=== PATIENT | female | born 1940 | race Caucasian/White ===

== ENCOUNTER → 2016-11-20 | Outpatient (CLI) | payer OTHER, MEDICARE ==
[~2016-11-20] VITALS: Ht 165.1 cm; Wt 65.3 kg
[~2016-11-20] MED LIST: CELEBREX 200 M200 MG PO; MS CONTIN15 MG PO; MULTI FOR HER400 MCG PO; OXYCODONE HCL5 M1 PO; ROXICODONE5 M1 PO; SUDAFED30 MG PO; ZANAFLEX2 M1 PO
--- NOTE | ~2016-11-20 | HPC ---
[facility] [place] [address] PAIN MANAGEMENT CONSULTATION Name: CHANDLER BEASLEY Room #: REG BRITTNEY [facility].#: [id number] Admission: 11/20/16 Attend Phys: Alfredo Negrete MD Discharge: Date of : 36 Report #: [id number] THIS REPORT FOR: //name// CC: Leni Negrete DATE OF SERVICE: 11/20/2016 Followup visit for chronic intractable arm pain with complex regional pain syndrome. The patient returns to pain clinic today for her medication which we provide under terms of our opioid agreement. She signed one of our first agreements on 05/18/1997. She takes currently MS Contin 15 mg b.i.d. and oxycodone 5 mg q. 12h., for breakthrough pain. Her morphine milligram equivalency is roughly 50-60 mg. She is stable with no significant side effects, remains active. 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 Today, she reports that her overall daily pain is about a 5-6. Most of it is in her left arm, but she also has right shoulder pain and pain into her neck. Characterizes the pain as chronic and burning. She is grateful for the relief that she gets. PHYSICAL EXAMINATION: GENERAL: Pleasant, alert and oriented, without signs of overmedication. VITAL SIGNS: Blood pressure 150/75, heart rate 88, respirations 16. BMI is 24. Left arm is tender to touch, but there are no signs of sympathetic hyperactivity. IMPRESSION: Chronic intractable pain with longstanding use of opioid medication. Her pain is originally complex regional pain syndrome, which is quiet at this time, although she continues to have diffuse arm pain and neck pain. PLAN: I will renew her medications under terms of our agreement. She will receive MS Contin 15 mg b.i.d., oxycodone twice a day for breakthrough pain, Celebrex 200 mg once daily and tizanidine 2 mg at bedtime, which has been helpful for sleep and for spasticity. [facility] [address] [place] [address] PAIN MANAGEMENT CONSULTATION Name: CHANDLER BEASLEY [facility] [id number] Admission: 11/20/16 Attend Phys: Alfredo Negrete MD Discharge: Date of : 38 Report #: [id number] Followup visit planned in 3 months. By: [id number] Alfredo Negrete MD /nt
[2016-11-20 11:00] VITALS: BP 150/75
== END ==
LOC: PAIN 07:24
DX: M54.2 Cervicalgia (principal); M79.603 Pain in arm, unspecified

== ENCOUNTER → 2017-05-27 | Outpatient (CLI) | payer OTHER, MEDICARE ==
[~2017-05-27] VITALS: Ht 165.1 cm; Wt 67.7 kg
[~2017-05-27] MED LIST changes: +ROXICODONE5 MG PO
--- NOTE | ~2017-05-27 | HPC ---
[facility] [address] [address] PAIN MANAGEMENT CONSULTATION Name: CHANDLER BEASLEY Room #: REG BRITTNEY [facility].#: [id number] Admission: 05/27/17 Attend Phys: Alfredo Negrete MD Discharge: Date of : 38 Report #: [id number] THIS REPORT FOR: //name// CC: Leni Negrete DATE OF SERVICE: 05/27/2017 Followup visit for chronic left arm pain, now with right shoulder pain and arthritis. The patient returns to pain clinic today for renewal of her pain medication. She has been receiving opioid analgesics since 1994. Her dose remains modest. Her morphine milligram equivalency dose is 45. She has been able to manage her chronic pain without difficulty. She continues to do well, her functioning is high. Her pain score is a 4-5/10. Pain is worse when she uses her arms lifting grandchildren or lifting things above her head. She has difficulty with tilting her head back, which reproduces pain in her neck, arm and shoulder. She has been complaining more recently of pain in the right shoulder, which has been diagnosed as arthritis. PQRS review is completed. All medications were reviewed and reconciled with no changes. ALLERGIES: TO NONSTEROIDAL ANTI-INFLAMMATORY DRUGS. She is on an opioid agreement and has been so for over 25 years. She has had no misuse or abuse issues. She safeguards her medication carefully. Opioid risk tool has been completed and she is a very low risk. She has completed a functional assessment tool as well and remains highly functional. She is not treated for hypertension. She is not a fall risk. BMI is 24.8. PHYSICAL EXAMINATION: She is pleasant, alert and oriented with vital signs of blood pressure 141/88, heart rate 103, respirations 16. She has good use of the left arm and contributes much of her improved movement to the use of her medication. IMPRESSION: 1. Chronic intractable arm pain with complex regional pain syndrome. 2. Long-term use of opioid analgesics but no misuse or abuse. [facility] [address] [place] [address] PAIN MANAGEMENT CONSULTATION Name: CHANDLER BEASLEY [facility] #: [facility] [id number] Admission: 05/27/17 Attend Phys: Alfredo Negrete MD Discharge: Date of : 38 Report #: [id number] PLAN: I renewed her medications for her with renewal days for 4 and 8 weeks and plan to see her back in the pain clinic in 3-6 months. <ELECTRONICALLY SIGNED> By: Alfredo Negrete MD 06/03/17 1640 [id number] Alfredo Negrete MD /nt
[2017-05-27 08:58] VITALS: BP 140/86
[2017-05-27 13:05] VITALS: BP 141/88
== END ==
LOC: PAIN 06:53
DX: G89.29 Other chronic pain (principal); M79.602 Pain in left arm; F11.90 Opioid use, unspecified, uncomplicated; Z88.6 Allergy status to analgesic agent

== ENCOUNTER → 2017-11-19 | Outpatient (CLI) | payer OTHER, MEDICARE ==
[~2017-11-19] VITALS: Ht 165.1 cm; Wt 66.7 kg
--- NOTE | ~2017-11-19 | HPC ---
[facility] [place] [address] PAIN MANAGEMENT CONSULTATION Name: CHANDLER BEASLEY Room #: REG BRITTNEY Naima#: [id number] Admission: 11/19/17 Attend Phys: Alfredo Negrete MD Discharge: Date of : 38 Report #: [id number] THIS REPORT FOR: //name// CC: Leni Negrete DATE OF SERVICE: 11/19/2017 REASON FOR VISIT: Followup visit for complex regional pain syndrome. HISTORY OF PRESENT ILLNESS: This is a 3-month followup for the patient who has been receiving opioid medications from our clinic for over 20 years. She has never shown any misuse or abuse of medications. She has received excellent relief of pain from her medication. She has denied any side effects. There has been no toxicity. We have checked her refill profile on the [facility] PDMP and there are no unusual entries, all medications have been received from our clinic. Other than the mild constipation with opioids, she has had nothing really negative to say about pain medication and is grateful that she has not required any additional treatments. We have talked at length at previous visits and once again today about trying to taper slowly if she came to the lowest effective dose. She is willing to do so. She has tried this in the past and often found that even with slow taper, her pain increases fairly dramatically and by the time, she has reduced by 30%-40%. She is willing to give it ago and will limit her breakthrough medications in the future. She is currently on MS Contin 15 mg b.i.d. and oxycodone 5 mg twice a day for breakthrough pain. PHYSICAL EXAMINATION: GENERAL: She is delightful, pleasant, alert and oriented, without signs of depression, anxiety or overmedication. VITAL SIGNS: Her blood pressure is 125/58 and heart rate 88. BMI is 26. MUSCULOSKELETAL: She moves from a sitting to standing position and ambulates without difficulty. Cervical range of motion is within normal limits. 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 IMPRESSION: 1. Chronic intractable arm pain, complex regional pain syndrome. 2. Long-term use of opioid analgesics and prescribing of high risk medications under terms of written opioid agreement within the CDC guidelines. Her MME is 45. [address] [address] PAIN MANAGEMENT CONSULTATION Name: CHANDLER BEASLEY Room #: REG BRITTNEY Naima#: [id number] Admission: 11/19/17 Attend Phys: Alfredo Negrete MD Discharge: Date of : 38 Report #: [id number] RECOMMENDATIONS: We will make some efforts to try and taper this between now and 3 months. She understands her critical role of safeguarding medication. We discussed at some length today. By: [id number] Alfredo Negrete MD /nt
[2017-11-19 10:39] VITALS: BP 160/86
== END ==
LOC: PAIN 07:16
DX: G90.513 Complex regional pain syndrome I of upper limb, bilateral (principal); G89.4 Chronic pain syndrome; M54.2 Cervicalgia; Z79.899 Other long term (current) drug therapy

== ENCOUNTER → 2018-03-01 | Outpatient (CLI) | payer OTHER, MEDICARE ==
[~2018-03-01] VITALS: Ht 165.1 cm; Wt 68.5 kg
[~2018-03-01] MED LIST changes: +CELEBREX 200 M200 M1 PO
--- NOTE | ~2018-03-01 | HPC ---
[facility] [address] [address] [place] [address] PAIN MANAGEMENT CONSULTATION Name: CHANDLER BEASLEY Room #: REG MINIMine Mcnamara#: [id number] Admission: 03/01/18 Attend Phys: Nan De La Rosa Discharge: Date of : 38 Report #: [id number] THIS REPORT FOR: //name// CC: Nan Odom MD DATE OF SERVICE: 03/01/2018 REASON FOR VISIT: Followup visit for her complex regional pain syndrome. HISTORY OF PRESENT ILLNESS: This is a 3-month followup visit for this patient who has been receiving opioid medications for her complex regional pain syndrome for many years of her left arm. The patient has been very stable on her opioid use. Rates it slightly as a 5/10 today, but normally tells me that her pain is 2-3 and very manageable with her prescriptions that are provided. The patient tells me today that she has been experiencing more left arm pain including tingly in her left arm, pain in her midback and both her shoulders. She tells me that normally the chiropractor with the massage used to help for 2-3 weeks; now, it is lasting less than 10 days. Tells me she also has pain when she looks up and tilting her head, lifting her arms and the medication does help, but seems to be that her symptoms are getting worse. So, she has made an appointment to see Dr. Odom at [facility] tomorrow for her ongoing midback and arm pain. The patient is here today, though for her followup of her pain medications for her 3-month supply. CURRENT ALLERGIES: NONSTEROIDAL ANTI-INFLAMMATORIES, SOME CAUSE A RASH. CURRENT LIST OF MEDICINES: Oxycodone 5 mg 1-2 tablets daily, morphine sulfate 15 mg twice a day, tizanidine 2 mg at bedtime, Celebrex 200 mg daily, Sudafed as needed, multivitamin daily, Colace as needed. PQRS: 1. The patient has a history of osteoarthritis in her back. Denies rheumatoid arthritis. 2. Height is 5 feet 5 inches, weight is 151 pounds. BMI is 25.1. 3. Vital signs: Blood pressure 151/94, pulse is 103, respirations 16, oxygen sat is 97%. 4. Pain score is 5/10. 5. She denies dizziness, does not need help walking or standing and has not fallen in the last 3 months. 6. She denies blood thinners or antihypertensive medicines. 7. Opioid therapy greater than 6 weeks; therefore, an opioid signed contract is on the chart. [address] [address] PAIN MANAGEMENT CONSULTATION Name: RAMOSCHANDLER Mahendra Room #: REG BRITTNEY Mcnamara#: [id number] Admission: 03/01/18 Attend Phys: Nan De La Rosa Discharge: Date of : 38 Report #: [id number] 8. Risk assessment tool is low and her functional assessment is . 9. Recreational drug use, she denies. She has never smoked and does not drink alcohol. We checked the [place] prescription monitoring system. The patient is filling appropriate with her narcotic use from Dr. Alfredo Negrete and no aberrant refills. She does fill from one pharmacy and the patient tells me she safeguards her meds. In fact, she tells me she had some leftover and has locked them up and will not be needing today prescription of her oxycodone 5 mg tablets. PHYSICAL EXAMINATION: GENERAL: This is a very pleasant, alert and oriented female without signs of depression, anxiety or overmedication. She appears her stated age and her affect is appropriate. HEENT: Normocephalic, atraumatic. Extraocular eye muscles are intact. Mucous membranes are moist and her hearing is intact. NECK: No JVD or adenopathy. Decreased range of motion in extension and flexion. Complains of tenderness at the base of her skull. MUSCULOSKELETAL: She moves from sitting to standing and ambulates without difficulty. She has mild tenderness in her left arm to palpation. 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 Does complain of some tingly burning feeling going down her right arm into her hand and fingers. IMPRESSION: 1. Chronic intractable arm pain, complex regional pain syndrome. 2. Long-term use of opioid analgesics prescribing high-risk medications. 3. Neck pain. We reviewed the fact that opiate medications are being used to provide analgesia adequate to support activities of daily living, not attempting to achieve a specific pain score on the 0-10 Visual Analog Scale. The current opiate medications are providing sufficient analgesia to allow the patient to participate in activities of daily living. The patient is not exhibiting any aberrant behavior suggestive of drug diversion. The patient is not having any adverse reactions to medications. The patient is not suffering from daytime somnolence or mental acuity changes. The patient is managing opiate-induced constipation with appropriate [id number] agents and dietary considerations. The patient was counseled on concern for caution with operating a motor vehicle while using opiate medications. A physical exam was performed and the patient's functional status was evaluated. All patients with back pain were advised against the bed rest greater than 4 days and were advised to return to normal activities. Pain score assessment was noted and the treatment plan was reviewed with the patient. All current medications, both prescribed and OTC were reviewed and reconciled on the [facility] [address] [place] [address] PAIN MANAGEMENT CONSULTATION Name: CHANDLER BEASLEY [facility] [id number] Admission: 03/01/18 Attend Phys: Nan De La Rosa Discharge: Date of : 38 Report #: [id number] electronic medical record. Tobacco screening was accomplished and smoking cessation was advised when indicated. BMI was noted and diet/exercise modification was recommended for all patients following outside normal parameters. I reviewed with the patient today their responsibilities to safeguard prescription medications, reviewed their responsibility to utilize medications only as prescribed by the physician. They are to seek and receive pain medications only from 1 physician group ( [facility]). They are to use 1 pharmacy and keep the clinic informed if they change pharmacies. Their responsibilities include making followup visits in a timely fashion and to avoid abrupt discontinuation of medication usage. Their responsibilities further include bringing their medications (bottles from the pharmacy with residual pills) to the visit for possible confirmation of pill counts and the patient understands it is their responsibility to submit to random drug screens to ensure both that the medications prescribed are present, and that no other controlled substances are present. All prescriptions provided today were generated electronically. PLAN: The patient returns today for followup of her opioid medications. Scripts were given for her morphine sulfate 15 mg, #60 to be released today for a week and 8-week; oxycodone 5 mg tablets, #60 to be released in 4-week and 8 weeks since the patient thinks she has about a month of medication left over. She tells me that she has only been taking one tablet somedays and tries to decrease use if it is not needed for her breakthrough pain medicine. 1. The patient to see Dr. Odom at [facility] tomorrow for her ongoing midback and arm pain. Her family has been requesting that she go see an Orthopedic Surgery for her ongoing pain. 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 I told her that the surgeon may want to perform a new one that at least she will have the report and the disk with her. 2. If they decide that a cervical epidural may be warranted to try and relieve some of her symptoms, she will schedule an appointment with Dr. Negrete to have that done. The patient states she is unsure though if it is from her complex regional pain syndrome in her left arm or if it is all coming from her neck, but she will keep us posted on the outcome of the visit tomorrow. 3. The patient will be seen in followup in 3 months' time period for prescription refills and earlier if an injection is needed: 4. The patient is seen in collaboration today with Dr. Alfredo Negrete. <ELECTRONICALLY SIGNED> By: Nan De La Rosa 03/02/18 0820 [id number] Nan De La Rosa /nt
[2018-03-01 12:50] VITALS: BP 151/94
== END ==
LOC: PAIN 00:25
DX: G90.512 Complex regional pain syndrome I of left upper limb (principal); M54.2 Cervicalgia; Z79.891 Long term (current) use of opiate analgesic

== ENCOUNTER → 2018-05-31 | Outpatient (CLI) | payer OTHER, MEDICARE ==
[~2018-05-31] VITALS: Ht 165.1 cm; Wt 66.0 kg
[~2018-05-31] MED LIST changes: +ASPIR 8181 MG PO; +ZANAFLEX2 MG PO
[2018-05-31 09:24] VITALS: BP 138/74
--- NOTE | 2018-05-31 09:30 | NUR ---
Pain Clinic Assessment: 1. History of Osteoarthritis: Not Applicable History of Rheumatoid Arthritis: Not Applicable 2. Height: 5 ft. 5 in. 165.1 cm. Weight: 145.6 lb. oz. 66.044 kg. Patient's BMI: 24.2 3. Vital Signs: BP: 138/74 Pulse: 78 Resp: 16 Temp: 02 Sat: 99 ECG Mon: 4. Pain Intensity: 3 5. Fall Risk: Dizziness: N Needs help standing or walking: N Fallen in the last 3 months: N Fall risk comments: 6. Patient on Blood Thinner: None 7. History of Hypertension: N 8. Opioid Therapy greater than 6 weeks: Y Opiate Contract Signed: 05/22/16 9. Risk Assessment Tool Provided: LOW RISK 1 10. Functional Assessment Tool: 11. Recreational Drug Use: Never Drug Type: Tobacco Use: Never Smoker Tobacco Type: Amount or Packs/day: How Many Years: Alcohol Use: No Frequency: Quant:
--- NOTE | 2018-06-01 08:11 | HPC ---
[facility] [address] [place] [address] PAIN MANAGEMENT CONSULTATION Name: CHANDLER BEASLEY Room #: REG BRITTNEY Mcnamara#: [id number] Admission: 05/31/18 ������������������ Attend Phys: Nan De La Rosa Discharge: ������������������ Date of : 36 Report #: [id number] THIS REPORT FOR: //name// CC: Nan De La Rosa Leni Grande DATE OF SERVICE: 05/31/2018 Followup visit for complex regional pain syndrome. HISTORY OF PRESENT ILLNESS: This is a followup visit for this very pleasant 77-year-old female for her medication management. She tells me that her pain score is 3 today and working well for her left arm, shoulder pain and back pain. She complains of occasional burning and aching, worse with movement or looking up or lifting her grandchildren, which she has had to do quite a bit lately because her grandson was diagnosed with myeloma of his eye and she was over there in [place] helping care for her great grandchildren. She tells me while she was there she followed the specific healthier diet and had less constipation than she normally has. She tells me this diet told her that for her constipation issues, she needs to try and eat better, though she says she does manage it fairly well. She does not take any medications to manage her constipation. She tells me she only takes her oxycodone as needed, averaging one a day and then on bad days taking her two. She would like a refill of her medication today. ALLERGIES: NONSTEROIDALS. MEDICATIONS: Aspirin 81 mg daily, Celebrex 200 mg daily, oxycodone 5 mg b.i.d. p.r.n., morphine sulfate 15 mg twice a day, tizanidine 2 mg at bedtime, Sudafed as needed, multivitamin daily. PQRS: 1. She has a history of osteoarthritis in her back. She denies rheumatoid arthritis. 2. Height is 5 feet 5 inches, weight is 145, BMI is 24. 3. Vital signs: Blood pressure 138/78, respirations 16, oxygen sat is 99. Pain score is 3/10. 4. The patient has not fallen in the last 3 months. She does not have any dizziness and she does not have any problems walking. 5. Not on any blood thinners, denies hypertension. 6. Opioid therapy is greater than 6 weeks, therefore an opioid signed contract is on the chart. 7. Risk assessment tool is low. Her functional assessment is . 8. Recreational drug use, she denies. She is not a smoker and [place] [address] PAIN MANAGEMENT CONSULTATION Name: CHANDLER BEASLEY Room #: REG BRITTNEY Mcnamara#: [id number] Admission: 05/31/18 ������������������ Attend Phys: Nan De La Rosa Discharge: ������������������ Date of : 38 Report #: [id number] We did check the prescription monitoring system. The patient is filling appropriately with her medications from Dr. Negrete. She does safeguard all of her medications. We will check a drug screen on her next visit. PHYSICAL EXAMINATION: GENERAL: This is a very pleasant, alert and orientated female without signs of overmedication or depression. She appears her stated age and her affect is appropriate. HEENT: Normocephalic, atraumatic. Extraocular eye muscles are intact. Mucous membranes are moist and her hearing is adequate. NECK: No JVD or adenopathy. Complains of some pain with movement of her right shoulder. MUSCULOSKELETAL: She moves from sitting to standing without any difficulty. Does complain of mild tenderness in her left hand and slight tingling and burning feeling that is radiating down her right arm. The patient's strength is judged to be 5/5 in all major muscle groups. IMPRESSION: 1. Chronic intractable arm pain, complex regional pain syndrome. 2. Long-term use of opioid analgesic, prescribing high risk medications: 3. Neck pain. We reviewed the fact that opiate medications are being used to provide analgesia adequate to support activities of daily living, not attempting to achieve a specific pain score on the 0-10 Visual Analog Scale. The current opiate medications are providing sufficient analgesia to allow the patient to participate in activities of daily living. The patient is not exhibiting any aberrant behavior suggestive of drug diversion. The patient is not having any adverse reactions to medications. The patient is not suffering from daytime somnolence or mental acuity changes. The patient is managing opiate-induced constipation with appropriate thqt-rgu-acsfylb agents and dietary considerations. The patient was counseled on concern for caution with operating a motor vehicle while using opiate medications. A physical exam was performed and the patient's functional status was evaluated. All patients with back pain were advised against the bed rest greater than 4 days and were advised to return to normal activities. Pain score assessment was noted and the treatment plan was reviewed with the patient. All current medications, both prescribed and OTC were reviewed and reconciled on the electronic medical record. Tobacco screening was accomplished and smoking cessation was advised when indicated. BMI was noted and diet/exercise modification was recommended for all patients following outside normal parameters. I reviewed with the patient today their responsibilities to safeguard prescription medications, reviewed their responsibility to utilize medications [address] [address] PAIN MANAGEMENT CONSULTATION Name: CHANDLER BEASLEY Room #: REG BRITTNEY Mcnamara#: [id number] Admission: 05/31/18 ������������������ Attend Phys: Nan De La Rosa Discharge: ������������������ Date of : 38 Report #: [id number] only as prescribed by the physician. They are to seek and receive pain medications only from 1 physician group ( [facility]). They are to use 1 pharmacy and keep the clinic informed if they change pharmacies. Their responsibilities include making followup visits in a timely fashion and to avoid abrupt discontinuation of medication usage. Their responsibilities further include bringing their medications (bottles from the pharmacy with residual pills) to the visit for possible confirmation of pill counts and the patient understands it is their responsibility to submit to random drug screens to ensure both that the medications prescribed are present, and that no other controlled substances are present. All prescriptions provided today were generated electronically. PLAN: 1. We discussed treatment options with the patient today. She is doing well on her current medication regimen and would like refill. Dr. Negrete did see the patient today for a brief time and we will continue her MS Contin 15 mg b.i.d., quantity 60 given for today, 4 and 8-week release and OxyIR 5 mg b.i.d. number 60 for today, 4 and 8-week release. This places the patient at 45 MME, therefore that is why she is able to see every 3 months. 2. The patient will follow up in 3 months and at that time we will do a drug screen since it is due for one to have on our chart. The patient is seen in collaboration with Dr. Alfredo Negrete as well as he saw the patient today. ��������������������������������������������� <ELECTRONICALLY SIGNED> ���������������������������������������� By: Nan De La Rosa ��������������������������������������������� 06/01/18 0811 1009 2110 Nan De La Rosa /nt
== END ==
LOC: PAIN 07:44
DX: G90.512 Complex regional pain syndrome I of left upper limb (principal); M54.2 Cervicalgia; Z79.891 Long term (current) use of opiate analgesic; Z79.899 Other long term (current) drug therapy

== ENCOUNTER → 2018-09-02 | Outpatient (CLI) | payer OTHER, MEDICARE ==
[~2018-09-02] VITALS: Ht 165.1 cm; Wt 65.8 kg
[2018-09-02 08:57] VITALS: BP 149/85
--- NOTE | 2018-09-02 09:00 | NUR ---
Pain Clinic Assessment: 1. History of Osteoarthritis: Not Applicable History of Rheumatoid Arthritis: Not Applicable 2. Height: 5 ft. 5 in. 165.1 cm. Weight: 145.0 lb. oz. 65.772 kg. Patient's BMI: 24.1 3. Vital Signs: BP: 149/85 Pulse: 82 Resp: 16 Temp: 02 Sat: 100 ECG Mon: 4. Pain Intensity: 3 5. Fall Risk: Dizziness: N Needs help standing or walking: N Fallen in the last 3 months: N Fall risk comments: 6. Patient on Blood Thinner: None 7. History of Hypertension: N 8. Opioid Therapy greater than 6 weeks: Y Opiate Contract Signed: 05/22/16 9. Risk Assessment Tool Provided: LOW RISK 1 10. Functional Assessment Tool: 11. Recreational Drug Use: Never Drug Type: Tobacco Use: Never Smoker Tobacco Type: Amount or Packs/day: How Many Years: Alcohol Use: No Frequency: Quant:
--- NOTE | 2018-09-03 08:16 | HPC ---
[facility] [address] [place] [address] PAIN MANAGEMENT CONSULTATION Name: CHANDLER BEASLEY Room #: REG [facility] Naima#: [id number] Admission: 09/02/18 ������������������ Attend Phys: Nan De La Rosa Discharge: ������������������ Date of : 38 Report #: [id number] THIS REPORT FOR: //name// CC: Nan De La Rosa Leni Jigoran DATE OF SERVICE: 09/02/2018 CHIEF COMPLAINT: Followup visit for complex regional pain syndrome. HISTORY OF PRESENT ILLNESS: This is a very pleasant 77-year-old female who returns to the pain clinic for her 3-month followup visit for her medication refill. She tells me she has been doing quite well. Since her last visit here, she has gone on several trips to see family. She tells me that during those trips with driving, she did have to reposition her arm quite frequently and take short breaks because her arm would start aching, but overall she tells me that she is doing quite well, rating her pain today at 3/10. Again, most of her pain is located in her neck and left arm. It is achy burning pain, but she tells me that she is doing well and is going to go on some more trips this summer and is here for her medication refills prior to those trips. She denies any problems with constipation. As long as she continues her prunes, she is fine and she has no daytime somnolence. ALLERGIES: IBUPROFEN AND FELDENE. MEDICATIONS: Zanaflex 2 mg at bedtime, oxycodone 5 mg b.i.d. p.r.n., morphine sulfate 15 mg b.i.d., aspirin 81 mg daily, Celebrex 200 mg daily, Sudafed as needed, multivitamin. PQRS: 1. She has a history of osteoarthritis in her back. She denies any rheumatoid arthritis. Her height is 5 feet 5 inches, weight is 145, BMI is 24. 2. Vital signs: 149/85, pulse is 82, respirations 16, oxygen sat is 100%. 3. Pain score is 3/10. 4. Denies dizziness. Does not need help walking or standing. Has not fallen in the last 3 months. 5. The patient is not on any blood thinners, does not have a history of hypertension. 6. Opioid therapy is greater than 6 weeks; therefore, an opioid signed contract is on the chart. 7. Risk assessment tool is low. Functional assessment is . 8. Recreational drug use, she denies. She is not a smoker and does not drink alcohol. We did check the prescription monitoring system. The patient is filling appropriately from her medications and she is filling in a timely manner. She [address] [address] PAIN MANAGEMENT CONSULTATION Name: SIAARABELLACHANDLER E Room #: REG BRITTNEY Mcnamara#: [id number] Admission: 09/02/18 ������������������ Attend Phys: Nan De La Rosa Discharge: ������������������ Date of : 38 Report #: [id number] does safeguard her medications at all times. PHYSICAL EXAMINATION: GENERAL: This is a very pleasant, alert and orientated female without signs of overmedication or depression. She appears her stated age and her affect is appropriate. Placing her pain score today at 3/10. HEENT: Normocephalic, atraumatic. Extraocular eye muscles are intact. Mucous membranes are moist. Hearing is adequate. NECK: Without JVD or adenopathy. MUSCULOSKELETAL: There is some pain with movement in her shoulders, mild tenderness in her left hand with slight tingling and burning feeling. Her strength in her left arm is judged to be 4/5 and 5/5 in her right arm in all major muscle groups. No swelling or no edema noted in her left arm. IMPRESSION: 1. Chronic intractable arm pain, complex regional pain syndrome. 2. Long-term use of opioid under terms of written opioid agreement. 3. Neck pain. We reviewed the fact that opiate medications are being used to provide analgesia adequate to support activities of daily living, not attempting to achieve a specific pain score on the 0-10 Visual Analog Scale. The current opiate medications are providing sufficient analgesia to allow the patient to participate in activities of daily living. The patient is not exhibiting any aberrant behavior suggestive of drug diversion. The patient is not having any adverse reactions to medications. The patient is not suffering from daytime somnolence or mental acuity changes. The patient is managing opiate-induced constipation with appropriate zjxb-wew-xeuhtsi agents and dietary considerations. The patient was counseled on concern for caution with operating a motor vehicle while using opiate medications. A physical exam was performed and the patient's functional status was evaluated. All patients with back pain were advised against the bed rest greater than 4 days and were advised to return to normal activities. Pain score assessment was noted and the treatment plan was reviewed with the patient. All current medications, both prescribed and OTC were reviewed and reconciled on the electronic medical record. Tobacco screening was accomplished and smoking cessation was advised when indicated. BMI was noted and diet/exercise modification was recommended for all patients following outside normal parameters. I reviewed with the patient today their responsibilities to safeguard prescription medications, reviewed their responsibility to utilize medications only as prescribed by the physician. They are to seek and receive pain medications only from 1 physician group ( [facility]). They are to use 1 pharmacy and keep the clinic informed if they change pharmacies. Their [facility] [address] [place] [address] PAIN MANAGEMENT CONSULTATION Name: CHANDLER BEASLEY Room #: REG BRITTNEY Mcnamara#: [id number] Admission: 09/02/18 ������������������ Attend Phys: Nan MARY De La Rosa Discharge: ������������������ Date of : 38 Report #: [id number] responsibilities include making followup visits in a timely fashion and to avoid abrupt discontinuation of medication usage. Their responsibilities further include bringing their medications (bottles from the pharmacy with residual pills) to the visit for possible confirmation of pill counts and the patient understands it is their responsibility to submit to random drug screens to ensure both that the medications prescribed are present, and that no other controlled substances are present. All prescriptions provided today were generated electronically. PLAN: 1. We discussed treatment options with the patient today. The patient tells me that she is doing quite well with her current pain regimen. She tells Dr. Negrete and myself that she feels that the medications keep her active and able to do things and enjoy life. She tells that she is never pain free, though does not expect to be, but feels that the medications are very helpful. 2. We renewed her MS Contin 15 mg, #60 for today, 4-week and 8-week release and oxycodone 5 mg, #60 for today, 4-week and 8-week release. This places the patient at 45 morphine milliequivalents according to the CDC guidelines well under their limits. 3. The patient is seen with Dr. Negrete who collaborated care today. The patient will return in 3 months' time period for an appointment. ��������������������������������������������� <ELECTRONICALLY SIGNED> ���������������������������������������� By: Nan De La Rosa ��������������������������������������������� 09/03/18 0816 0937 0051 Nan De La Rosa /nt
== END ==
LOC: PAIN 06:41
DX: G90.50 Complex regional pain syndrome I, unspecified (principal); M54.2 Cervicalgia; M79.603 Pain in arm, unspecified; Z79.82 Long term (current) use of aspirin; Z79.891 Long term (current) use of opiate analgesic; Z79.899 Other long term (current) drug therapy; Z88.8 Allergy status to other drugs, medicaments and biological substances

== ENCOUNTER → 2018-12-02 | Outpatient (CLI) | payer OTHER, MEDICARE ==
[~2018-12-02] VITALS: Ht 165.1 cm; Wt 66.1 kg
--- NOTE | ~2018-12-02 | HPC ---
[facility] [address] [address] PAIN MANAGEMENT CONSULTATION Name: CHANDLER BEASLEY Room #: REG BRITTNEY McmullenCuauhtemoc#: [id number] Admission: 12/02/18 Attend Phys: Alfredo Negrete MD Discharge: Date of : 38 Report #: [id number] THIS REPORT FOR: //name// CC: Leni Negrete DATE OF SERVICE: 12/02/2018 Followup visit for chronic left arm pain and chronic use of opioid therapy. The patient returns to pain clinic today at 77 years of age. She looks great. Her 78th birthday is coming up in 2 weeks. She has a dubious honor of being on a longest standing chronic opioid patient. She was initiated on opioid therapy nearly 25 years ago. She has not substantially increased her dose. She has never had side effects. She takes that daily on a schedule and it controls her left arm pain, but it has also been helpful in treating arthropathy that has developed with aging. Both shoulders, mid back and hip pain have all been beset with degenerative changes and chronic pain. She injured herself catching her toe on the carpet, falling and fracturing her left kneecap. She did not require any additional medication. It is healing and she is under the care of Dr. Garrett, orthopedic surgeon. Overall, pain score generally of 4. PQRS REVIEW: Completed. 1. She has no history of significant osteoarthritis, but complains of some joint pains. 2. BMI is 24.3. 3. Vital signs: Blood pressure 118/69, heart rate 96. 4. Pain intensity 4. 5. Fall risk would be positive given her fall in the last 3 months, but this was accidental and I do not see anything in her physical exam that would suggest that she is a concern for future falls. 6. The patient is not on blood thinner. 7. History of hypertension, none. 8. Opioid agreement first signed in the . She has reinitiated her agreement in 2017. 9. She is at low risk for addiction scoring 04/15. 10. Functional assessment score is 1270. 11. She denies use of tobacco and alcohol. PHYSICAL EXAMINATION: VITAL SIGNS: As noted. She easily looks 10 years younger than her stated age. She moves independently from sitting to standing position. HEENT: Pupils are equal, round, reactive to light. [address] [address] PAIN MANAGEMENT CONSULTATION Name: CHANDLER BEASLEY Room #: REG [facility]#: [id number] Admission: 12/02/18 Attend Phys: Alfredo Negrete MD Discharge: Date of : 38 Report #: [id number] CHEST: Clear. CARDIAC: Rhythm is regular. EXTREMITIES: She has minimal discomfort in the left arm at this time with her medication. IMPRESSION: 1. Chronic intractable pain, on longstanding opioid therapy without complication. 2. 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 3. Recent fall with fracture patella. PLAN: I have renewed her medications under terms of our opioid agreement. I do not have a urine drug screen on her chart! that was corrected today. A random drug screen will be performed, I expect to see oxycodone and morphine. Followup visit is scheduled in our pain clinic in 3 months. By: 1732 0052 Alfredo Negrete MD /nt
[2018-12-02 13:40] VITALS: BP 118/69
--- NOTE | 2018-12-02 14:01 | NUR ---
Pain Clinic Assessment: 1. History of Osteoarthritis: Not Applicable History of Rheumatoid Arthritis: Not Applicable 2. Height: 5 ft. 5 in. 165.1 cm. Weight: 145.8 lb. oz. 66.134 kg. Patient's BMI: 24.3 3. Vital Signs: BP: 118/69 Pulse: 96 Resp: 14 Temp: 02 Sat: 96 ECG Mon: 4. Pain Intensity: 4 5. Fall Risk: Dizziness: N Needs help standing or walking: N Fallen in the last 3 months: Y Fall risk comments: 6. Patient on Blood Thinner: None 7. History of Hypertension: N 8. Opioid Therapy greater than 6 weeks: Y Opiate Contract Signed: 05/22/16 9. Risk Assessment Tool Provided: LOW RISK 1 10. Functional Assessment Tool: 11. Recreational Drug Use: Never Drug Type: Tobacco Use: Never Smoker Tobacco Type: Amount or Packs/day: How Many Years: Alcohol Use: No Frequency: Quant:
== END ==
LOC: PAIN 08:34
DX: G89.4 Chronic pain syndrome (principal); M54.2 Cervicalgia; S82.009A Unspecified fracture of unspecified patella, initial encounter for closed fracture; W19.XXXA Unspecified fall, initial encounter; Z79.891 Long term (current) use of opiate analgesic; Y93.89 Activity, other specified; Y92.89 Other specified places as the place of occurrence of the external cause; Y99.8 Other external cause status

== ENCOUNTER → 2019-04-04 | Outpatient (CLI) | payer OTHER, MEDICARE ==
[~2019-04-04] VITALS: Ht 165.1 cm; Wt 65.6 kg
[~2019-04-04] MED LIST changes: +TIZANIDINE HCL 22 M1 PO
--- NOTE | ~2019-04-04 | HPC ---
[facility] [address] [address] PAIN MANAGEMENT CONSULTATION Name: CHANDLER BEASLEY Room #: REG BRITTNEY Kemi.#: [id number] Admission: 04/04/19 Attend Phys: Alfredo Negrete MD Discharge: Date of : 38 Report #: [id number] THIS REPORT FOR: //name// CC: Leni Negrete DATE OF SERVICE: 04/04/2019 Followup visit for chronic regional pain syndrome and chronic opioid management. The patient returns to pain clinic in followup for medication. She has been on opioids for 25 years at a fairly stable dose. She continues to report that the medication provides good daily pain relief. She denies side effects. She carefully safeguards all her medication and does not receive medication from any other physicians. She understands the opioid crisis. She also understands that the medication has provided her with 25 years of excellent pain control and management without toxicity. She does not have significant issues and the medications are cost effective. She has had no significant changes in her health history since she was last here. Her biggest social change is that her grandson is living with her with 4 small children. This is a lot for an 78-year-old. She is entering into this loving act with optimism and a positive attitude. I have discussed the importance of keeping this medication safeguarded in face of these young children. PQRS REVIEW: Positive for chronic pain related to CRPS, but she also has osteoarthritis of the spine, shoulders and neck. Her pain medications aid in these conditions. Her BMI is 24. Her blood pressure 129/86, heart rate 88, respirations 16, O2 sat 97. Pain intensity is 3. She is not a fall risk and is ambulating without difficulty. She is not on blood thinning medications nor is she treated for hypertension. An opioid risk tool assessment has been performed and her score is 1 consistent with low risk of addiction. Her functional assessment score of 15 suggesting that she is functioning very highly with medication. She denies use of tobacco, alcohol or marijuana. IMPRESSION: 1. Complex regional pain syndrome. 2. Some mild cervicalgia, was barely bothersome today during her visit. 3. Management of high risk medications. [facility] [address] [place] [address] PAIN MANAGEMENT CONSULTATION Name: CHANDLER BEASLEY Room #: REG [facility].#: [id number] Admission: 04/04/19 Attend Phys: Alfredo Negrete MD Discharge: Date of : 38 Report #: [id number] PLAN: Medications were renewed under terms of written agreement. A followup visit is scheduled in 3 months. By: 1712 0030 Alfredo Negrete MD /nt
[2019-04-04 14:53] VITALS: BP 129/86
--- NOTE | 2019-04-04 15:13 | NUR ---
Pain Clinic Assessment: 1. History of Osteoarthritis: SPINE SHOULDERS NECK History of Rheumatoid Arthritis: DENIES 2. Height: 5 ft. 5 in. 165.1 cm. Weight: 144.6 lb. oz. 65.590 kg. Patient's BMI: 24.1 3. Vital Signs: BP: 129/86 Pulse: 88 Resp: 16 Temp: 02 Sat: 97 ECG Mon: 4. Pain Intensity: 3 5. Fall Risk: Dizziness: N Needs help standing or walking: N Fallen in the last 3 months: N Fall risk comments: 6. Patient on Blood Thinner: None 7. History of Hypertension: N 8. Opioid Therapy greater than 6 weeks: Y Opiate Contract Signed: 05/22/16 9. Risk Assessment Tool Provided: LOW RISK 1 10. Functional Assessment Tool: 11. Recreational Drug Use: Never Drug Type: Tobacco Use: Never Smoker Tobacco Type: Amount or Packs/day: How Many Years: Alcohol Use: No Frequency: Quant:
== END ==
LOC: PAIN 03-07 07:01
DX: G89.4 Chronic pain syndrome (principal); M54.2 Cervicalgia; Z79.899 Other long term (current) drug therapy

== ENCOUNTER → 2019-06-30 | Outpatient (CLI) | payer OTHER, MEDICARE ==
[~2019-06-30] VITALS: Ht 165.1 cm; Wt 64.7 kg
[2019-06-30 10:27] VITALS: BP 136/88
--- NOTE | 2019-06-30 10:43 | NUR ---
Pain Clinic Assessment: 1. History of Osteoarthritis: SPINE SHOULDERS NECK History of Rheumatoid Arthritis: DENIES 2. Height: 5 ft. 5 in. 165.1 cm. Weight: 142.6 lb. oz. 64.683 kg. Patient's BMI: 23.7 3. Vital Signs: BP: 136/88 Pulse: 92 Resp: 14 Temp: 02 Sat: 98 ECG Mon: 4. Pain Intensity: 4 5. Fall Risk: Dizziness: N Needs help standing or walking: N Fallen in the last 3 months: N Fall risk comments: 6. Patient on Blood Thinner: None 7. History of Hypertension: N 8. Opioid Therapy greater than 6 weeks: Y Opiate Contract Signed: 05/22/16 9. Risk Assessment Tool Provided: LOW RISK 1 10. Functional Assessment Tool: 11. Recreational Drug Use: Never Drug Type: Tobacco Use: Never Smoker Tobacco Type: Amount or Packs/day: How Many Years: Alcohol Use: No Frequency: Quant:
--- NOTE | 2019-06-30 13:46 | HPC ---
[facility] [address] [place] [address] PAIN MANAGEMENT CONSULTATION Name: CHANDLER BEASLEY Room #: REG BRITTNEY Mcnamara#: [id number] Admission: 06/30/19 Attend Phys: Nan De La Rosa Discharge: Date of : 38 Report #: [id number] THIS REPORT FOR: cc: Leni Grande MD, Michelle R. MD Hocker,Nan HERNANDEZ ~ CC: JAKE PEÑA DATE OF SERVICE: 06/30/2019 CHIEF COMPLAINT: Chronic regional pain syndrome and chronic opioid management. HISTORY OF PRESENT ILLNESS: This is a very pleasant 78-year-old female who appears younger than her stated age. She is here for refills of her medications that she has been quite stable on for quite some time that she uses to treat her ongoing neck and low back and shoulder pain. She feels that as well as her ongoing low back pain, she reports that she has been sitting at the computer more since the COVID virus, doing online Bible studies and that has increased her neck and back pain, but she has been able to get by with her current pain regimen, rating her pain score at 4/10 today. It is an aching and pulling with occasional spasms. She feels that heat has also been beneficial aside from her opioid medications. She denies any problems with daytime sleepiness or constipation as a result of her medicines. ALLERGIES: IBUPROFEN AND FELDENE. CURRENT LIST OF MEDICINES: Morphine sulfate 15 mg b.i.d., oxycodone p.r.n., tizanidine p.r.n., Celebrex 200 mg daily, aspirin, Sudafed and multivitamin. PQRS: 1. She has osteoarthritic changes in her spine, shoulders and neck. Denies any rheumatoid arthritis. 2. Height is 5 feet 5 inches, weight is 142, BMI is 23. 3. Vital Signs: Blood pressure 136/88, pulse is 92, respirations 14, oxygen sat is 98. 4. Pain score is 4/10. 5. Denies dizziness, does not need help walking or standing, has not fallen in the last 3 months. 6. The patient is not on any blood thinners or medicine for hypertension. 7. Opioid therapy is greater than 6 weeks; therefore, an opioid signed contract is on the chart. Her risk assessment tool is low. Functional assessment is . 8. Recreational drug use, she denies. She is not a smoker and does not drink alcohol. According to the prescription monitoring system, the patient is filling [address] [address] PAIN MANAGEMENT CONSULTATION Name: CHANDLER BEASLEY Room #: REG [facility]#: [id number] Admission: 06/30/19 Attend Phys: Nan De La Rosa Discharge: Date of : 38 Report #: [id number] appropriately for her medications and due to fill these today. Her morphine mEq according to the CDC guidelines is 45 MME per day. PHYSICAL EXAMINATION: GENERAL: This is alert and orientated, very pleasant 78-year-old female who appears younger than her stated age, rating her pain score at 4/10 today. HEENT: Normocephalic, atraumatic. Extraocular eye muscles are intact. Mucous membranes are moist. MUSCULOSKELETAL: She raises from sitting to standing independently. She has a normal gait. She has tenderness in her paraspinal muscles in her neck today that radiates into her shoulders. Her upper extremity strength judged to be 5/5 in all major muscle groups. IMPRESSION: 1. Complex regional pain syndrome. 2. Mild cervicalgia. 3. Management of high risk medications under terms of written opioid agreement. We reviewed the fact that opiate medications are being used to provide analgesia adequate to support activities of daily living, not attempting to achieve a specific pain score on the 0-10 Visual Analog Scale. The current opiate medications are providing sufficient analgesia to allow the patient to participate in activities of daily living. The patient is not exhibiting any aberrant behavior suggestive of drug diversion. The patient is not having any adverse reactions to medications. The patient is not suffering from daytime somnolence or mental acuity changes. The patient is managing opiate-induced constipation with appropriate brkz-zfa-[id number] agents and dietary considerations. The patient was counseled on concern for caution with operating a motor vehicle while using opiate medications. PLAN: 1. We discussed treatment options with the patient today. The patient finds her medications very beneficial in controlling her pain. We will refill her MS Contin 15 mg, #60 for today for an 8-week release as well as her oxycodone 5 mg, #60 for today for an 8-week release. These will be sent electronically by Dr. Jake Peña. 2. I will send her Celebrex 200 mg, #90 with 2 additional refills. This will be a year supply of her anti-inflammatory. She is not in need of her tizanidine today. 3. We did discuss the COVID virus. The patient has been isolated at home. She is happy to be out today, using precautions and washing her hands frequently because she has been quite isolated. She has been doing her Bible studies online and talking to people via [employer]. We discussed possible decrease in her med that she is able to avoid any withdrawal symptoms if the supply chain is affected; therefore, she will have a small supply at home. The patient verbalizes understanding. She will try to decrease some days that she has less [facility] [address] [place] [address] PAIN MANAGEMENT CONSULTATION Name: CHANDLER BEASLEY Room #: REG BRITTNEY Mcnamara#: [id number] Admission: 06/30/19 Attend Phys: Nan De La Rosa Discharge: Date of : 38 Report #: [id number] pain. 4. The patient was seen by Dr. Jake Peña as well today who collaborated care. The patient will return in 3 months as needed for medications. <ELECTRONICALLY SIGNED> By: Nan De La Rosa 06/30/19 1346 1128 1200 Nan De La Rosa /nt
== END ==
LOC: PAIN 06:49
DX: G89.4 Chronic pain syndrome (principal); F11.20 Opioid dependence, uncomplicated; M54.2 Cervicalgia; Z79.84 Long term (current) use of oral hypoglycemic drugs

== ENCOUNTER → 2020-01-02 | Outpatient (CLI) | payer OTHER, MEDICARE ==
[~2020-01-02] VITALS: Ht 165.1 cm; Wt 65.6 kg
[~2020-01-02] MED LIST changes: +PRESERVISION L1 EACH PO
[2020-01-02 10:09] VITALS: BP 112/80
--- NOTE | 2020-01-02 10:20 | NUR ---
Pain Clinic Assessment: 1. History of Osteoarthritis: SPINE SHOULDERS NECK History of Rheumatoid Arthritis: DENIES 2. Height: 5 ft. 5 in. 165.1 cm. Weight: 144.6 lb. oz. 65.590 kg. Patient's BMI: 24.1 3. Vital Signs: BP: 112/80 Pulse: 87 Resp: 16 Temp: 02 Sat: 99 ECG Mon: 4. Pain Intensity: 8 5. Fall Risk: Dizziness: N Needs help standing or walking: N Fallen in the last 3 months: N Fall risk comments: 6. Patient on Blood Thinner: None 7. History of Hypertension: N 8. Opioid Therapy greater than 6 weeks: Y Opiate Contract Signed: 05/22/16 9. Risk Assessment Tool Provided: LOW RISK 1 10. Functional Assessment Tool: 11. Recreational Drug Use: Never Drug Type: Tobacco Use: Never Smoker Tobacco Type: Amount or Packs/day: How Many Years: Alcohol Use: No Frequency: Quant:
--- NOTE | 2020-01-02 14:16 | HPC ---
[facility] [address] [address] [place] [address] PAIN MANAGEMENT CONSULTATION Name: CHANDLER BEASLEY Room #: REG MINIMine Mcnamara#: [id number] Admission: 01/02/20 Attend Phys: Nan De La Rosa Discharge: Date of : 38 Report #: [id number] THIS REPORT FOR: cc: Leni Grande MD, Michelle R. MD Hocker, Amanda CNS ~ CC: Alfredo Negrete MD DATE OF SERVICE: 01/02/2020 CHIEF COMPLAINT: Chronic regional pain syndrome. HISTORY OF PRESENT ILLNESS: This is a very pleasant 79-year-old female who returns to the pain clinic today for refills of her opioid medications. Today, she is rating her pain an 8/10, which is slightly elevated for her. She has had to stop her Celebrex per her report of increased kidney function test. She has had an ultrasound, which showed no masses or obstructions, but is going to see a substance abuse services director soon, so throughout this time period she has stopped her Celebrex and has been drinking more water. She feels the stoppage of Celebrex has caused a slight increase in her pain. The patient reports her pain is in her neck, bilateral shoulders, worse on the right today as well as her mid back. There is an aching spasm, tightness, worse with using her arms or bending over. She does feel that the morphine and oxycodone are beneficial and denies any problems with daytime somnolence or constipation as a result of these medications. ALLERGIES: IBUPROFEN AND FELDENE. CURRENT LIST OF MEDICATIONS: PreserVision, oxycodone, morphine sulfate 15 mg b.i.d., tizanidine 2 mg b.i.d., aspirin, Sudafed and multivitamin. PQRS: 1. She has osteoarthritis in her spine, shoulders and neck. Denies any rheumatoid arthritis. 2. Height is 5 feet 5 inches, weight is 144, BMI is 24. 3. Vital signs: 112/80, pulse is 87, respirations 16, oxygen sat is 99. 4. Pain score is 8/10. 5. Denies dizziness, does not need help walking or standing, has not fallen in the last 3 months. 6. The patient is not on any blood thinners or medicine for hypertension. 7. Opioid therapy is greater than 6 weeks; therefore, an opioid signed contract is on the chart. Her risk assessment is low. Functional assessment is 15/70. 8. Recreational drug use, she denies. She is not a smoker and does not drink alcohol. According to the prescription monitoring system, her morphine mEq according to [address] [address] PAIN MANAGEMENT CONSULTATION Name: CHANDLER BEASLEY Room #: REG [facility] Naima#: [id number] Admission: 01/02/20 Attend Phys: Nan De La Rosa Discharge: Date of : 38 Report #: [id number] the CDC guidelines is 45. She is filling her medications appropriately and there is a recent drug screen on the chart that is appropriate for her medications. PHYSICAL EXAMINATION: GENERAL: This is alert and orientated, very pleasant 79-year-old who appears younger than her stated age. She is well-developed, well-nourished, rating her pain score an 8/10 today. HEENT: Normocephalic, atraumatic. Extraocular eye muscles are intact. She is wearing a mask. MUSCULOSKELETAL: She has tenderness in her paraspinal musculature of her neck and radiates into her shoulders. Pain is increased with range of motion in her bilateral shoulders, greater on the right today. Her upper extremity strength is symmetrical at 5/5. She has tenderness in her lumbar thoracic region with no radicular symptoms. Lower extremity strength judged to be symmetrical at 5/5 with good sensation from L1-S2. She has a normal gait. IMPRESSION: 1. Chronic intractable arm pain and regional pain syndrome 2. Mild cervicalgia. 3. Low back pain. 4. Management of high risk medications under terms of written opioid agreement. 5. Bilateral Shoulder pain We reviewed the fact that opiate medications are being used to provide analgesia adequate to support activities of daily living, not attempting to achieve a specific pain score on the 0-10 Visual Analog Scale. The current opiate medications are providing sufficient analgesia to allow the patient to participate in activities of daily living. The patient is not exhibiting any aberrant behavior suggestive of drug diversion. The patient is not having any adverse reactions to medications. The patient is not suffering from daytime somnolence or mental acuity changes. The patient is managing opiate-induced constipation with appropriate nwft-xec-ccigljj agents and dietary considerations. The patient was counseled on concern for caution with operating a motor vehicle while using opiate medications. PLAN: 1. We discussed treatment options with the patient today. Based on her increased kidney function results, she has had to stop Celebrex. I did discuss briefly with her regarding diclofenac gel to ask her substance abuse services director when she sees her if she is able to use that since it does not have the systemic effects that the Celebrex has. I encouraged the patient not to start this medication until she speaks with the substance abuse services director. 2. The patient has been having ongoing right shoulder pain for greater than 2 months. She is thinking about getting an injection from her orthopedic though she has not seen him for several years. I explained to her Dr. Alfredo Negrete [address] [place] [address] PAIN MANAGEMENT CONSULTATION Name: CHANDLER BEASLEY Room #: REG BRITTNEY Mcnamara#: [id number] Admission: 01/02/20 Attend Phys: Nan De La Rosa Discharge: Date of : 38 Report #: [id number] could perform this under fluoroscopy for her. Appointment will be made 2 weeks after she is scheduled to have her flu shot vaccination. 3. Dr. Negrete did see the patient as well today and will send her morphine sulfate 15 mg b.i.d., #60 for today 4 week, 8-week release as well as her oxycodone 5 mg tablets, #60 for 3-month supply. 4. I will send her tizanidine 2 mg tablets, #90 with 2 additional refills. The patient does take these sparingly for muscle spasms in her back. 5. The patient seen by collaboration with Dr. Alfredo Negrete today and will return mid January for her injection. <ELECTRONICALLY SIGNED> By: Nan De La Rosa 01/02/20 1416 1058 [id number] Nan De La Rosa /nt
== END ==
LOC: PAIN 06:59
PROVIDERS: ATTEND Clinical Nurse Specialist Adult Health
DX: G89.4 Chronic pain syndrome (principal); M54.2 Cervicalgia; M54.5 Low back pain; M25.511 Pain in right shoulder; M25.512 Pain in left shoulder; Z88.8 Allergy status to other drugs, medicaments and biological substances; Z79.899 Other long term (current) drug therapy

== ENCOUNTER → 2020-04-30 | Outpatient (CLI) | payer OTHER, MEDICARE ==
[~2020-04-30] VITALS: Ht 165.1 cm; Wt 65.9 kg
[2020-04-30 10:19] VITALS: BP 129/74
--- NOTE | 2020-04-30 10:42 | NUR ---
Pain Clinic Assessment: 1. History of Osteoarthritis: SPINE SHOULDERS NECK History of Rheumatoid Arthritis: DENIES 2. Height: 5 ft. 5 in. 165.1 cm. Weight: 145.2 lb. oz. 65.862 kg. Patient's BMI: 24.2 3. Vital Signs: BP: 129/74 Pulse: 85 Resp: 16 Temp: 02 Sat: 100 ECG Mon: 4. Pain Intensity: 3 5. Fall Risk: Dizziness: N Needs help standing or walking: N Fallen in the last 3 months: N Fall risk comments: 6. Patient on Blood Thinner: None 7. History of Hypertension: N 8. Opioid Therapy greater than 6 weeks: Y Opiate Contract Signed: 05/22/16 9. Risk Assessment Tool Provided: LOW RISK 1 10. Functional Assessment Tool: 11. Recreational Drug Use: Never Drug Type: Tobacco Use: Never Smoker Tobacco Type: Amount or Packs/day: How Many Years: Alcohol Use: No Frequency: Quant:
--- NOTE | 2020-05-01 07:18 | HPC ---
[facility] [address] [address] PAIN MANAGEMENT CONSULTATION Name: CHANDLER BEASLEY Room #: REG BRITTNEY Mcnamara#: [id number] Admission: 04/30/20 Attend Phys: Nan De La Rosa Discharge: Date of : 38 Report #: [id number] THIS REPORT FOR: cc: Leni Grande MD, Michelle R. MD Hocker,Nan HERNANDEZ ~ DATE OF SERVICE: 04/30/2020 CHIEF COMPLAINT: Chronic regional pain syndrome. HISTORY OF PRESENT ILLNESS: This is a very pleasant 79-year-old female who returns to the pain clinic today for refill of her medications. Today, she is reporting a pain score of 3/10, most significantly located in her left arm and lower back. She states that it is an aching spasm sensation that was worse with an activity or using her arms. She believes the medication as well as heat and exercise has been beneficial. The patient does report that she started doing the exercises that her therapist had recommended and since that time, her left shoulder pain and back pain have been increasingly improving. She does understand now that with Dr. Caden panchal about body likes motion that she understands. She states during this COVID outbreak, she had been very sedentary and her pain had been increasing since she started her exercises. She believes her pain is better controlled along with her medications. ALLERGIES: IBUPROFEN AND FELDENE. CURRENT LIST OF MEDICATIONS: Oxycodone 5 mg b.i.d., morphine sulfate 15 mg b.i.d., tizanidine 2 mg p.r.n., multivitamin, PreserVision, aspirin. PQRS: 1. She has osteoarthritis of her spine, shoulders and neck. Denies any rheumatoid arthritis. 2. Height is 5 feet 5 inches, weight is 145, BMI is 24. 3. Vital signs 129/74, pulse is 85, respirations 16, oxygen sat is 100. 4. Pain score is 3/10. 5. Denies dizziness, does not need help walking or standing, has not fallen in the last 3 months. 6. The patient is not on any blood thinners or medicine for hypertension. 7. Opioid therapy is greater than 6 weeks; therefore, an opioid signed contract is on the chart. Risk assessment is low. Functional assessment is . 8. Recreational drug use, she denies. She is not a smoker and does not drink alcohol. According to the prescription monitoring system, her morphine mEq is 45 MMEs per day. There is a drug screen on the chart that is appropriate as well. We will check a random one at her next visit. [address] [address] PAIN MANAGEMENT CONSULTATION Name: CHANDLER BEASLEY Room #: REG Mine Mcnamara#: [id number] Admission: 04/30/20 Attend Phys: Nan De La Rosa Discharge: Date of : 38 Report #: [id number] PHYSICAL EXAMINATION: GENERAL: This is alert and orientated, very pleasant 79-year-old female who appears younger than her stated age, rating her pain score today at 3/10. She is a good historian. HEENT: Normocephalic, atraumatic. Extraocular eye muscles are intact. She is wearing a mask. MUSCULOSKELETAL: The patient has tenderness in the paraspinal musculature of her neck that radiates into her shoulders, greater on the left than the right. Pain does increase with range of motion. Her strength is symmetrical in her bilateral upper extremities at 5/5 with good strength. She has tenderness in the lumbosacral region, thoracic lumbar region with no radicular symptoms. IMPRESSION: 1. Chronic intractable arm pain with complex regional pain syndrome. 2. Mild cervicalgia. 3. Low back pain. 4. Management of high risk medications under terms of written opioid agreement. PLAN: 1. We discussed treatment options with the patient today. The patient has resumed her stretching exercises that she had been taught by physical therapy for her back and shoulder. In doing so, she has significantly decreased her pain; therefore, she did cancel the injection that Dr. Negrete was going to perform on her. She understands that she needs to keep active to keep her pain decreased and finds this beneficial as well as taking her medications on a daily basis. We will have Dr. Alfredo Negrete continue her MS Contin 15 mg once a day as well as her oxycodone 5 mg b.i.d. Three months of medications will be sent electronically by Dr. Negrete. 2. I will continue her on her tizanidine 2 mg, #90, with 2 additional refills. 3. We did discuss the COVID vaccination. She is scheduled to have this at [facility] on 05/16. 4. The patient is seen today in collaboration with Dr. Alfredo Negrete who did see the patient as well. <ELECTRONICALLY SIGNED> By: Nan De La Rosa 05/01/20 0718 1128 1153 Nan De La Rosa /nt
== END ==
LOC: PAIN 01-26 13:45
PROVIDERS: ATTEND Clinical Nurse Specialist Adult Health
DX: G89.4 Chronic pain syndrome (principal); M54.2 Cervicalgia; Z79.891 Long term (current) use of opiate analgesic

== ENCOUNTER → 2020-07-30 | Outpatient (CLI) | payer OTHER, MEDICARE ==
[~2020-07-30] VITALS: Ht 165.1 cm; Wt 68.2 kg
[~2020-07-30] MED LIST changes: +OXYBUTYNIN 5 MG5 M2 PO
[2020-07-30 09:57] VITALS: BP 138/78
--- NOTE | 2020-07-30 10:17 | NUR ---
Pain Clinic Assessment: 1. History of Osteoarthritis: SPINE SHOULDERS NECK History of Rheumatoid Arthritis: DENIES 2. Height: 5 ft. 5 in. 165.1 cm. Weight: 150.4 lb. oz. 68.221 kg. Patient's BMI: 25.0 3. Vital Signs: BP: 138/78 Pulse: 70 Resp: 16 Temp: 02 Sat: 98 ECG Mon: 4. Pain Intensity: 3 5. Fall Risk: Dizziness: N Needs help standing or walking: N Fallen in the last 3 months: N Fall risk comments: 6. Patient on Blood Thinner: None 7. History of Hypertension: N 8. Opioid Therapy greater than 6 weeks: Y Opiate Contract Signed: 05/22/16 9. Risk Assessment Tool Provided: LOW RISK 1 10. Functional Assessment Tool: 11. Recreational Drug Use: Never Drug Type: Tobacco Use: Never Smoker Tobacco Type: Amount or Packs/day: How Many Years: Alcohol Use: No Frequency: Quant:
== END ==
LOC: PAIN 07:08
PROVIDERS: ATTEND Anesthesiology Pain Medicine
DX: G90.512 Complex regional pain syndrome I of left upper limb (principal); M19.011 Primary osteoarthritis, right shoulder; M19.012 Primary osteoarthritis, left shoulder; Z88.8 Allergy status to other drugs, medicaments and biological substances; Z79.891 Long term (current) use of opiate analgesic; Z79.899 Other long term (current) drug therapy

== ENCOUNTER → 2020-10-29 | Outpatient (CLI) | payer OTHER, MEDICARE ==
[~2020-10-29] VITALS: Ht 165.1 cm; Wt 67.2 kg
[~2020-10-29] MED LIST changes: +DITROPAN XL10 M1 PO; +MORPHINE SULFAT15 MG PO; +ROXICODONE5 M2 PO
[2020-10-29 10:01] VITALS: BP 115/75
--- NOTE | 2020-10-29 10:15 | NUR ---
Pain Clinic Assessment: 1. History of Osteoarthritis: SPINE SHOULDERS NECK History of Rheumatoid Arthritis: DENIES 2. Height: 5 ft. 5 in. 165.1 cm. Weight: 148.2 lb. oz. 67.223 kg. Patient's BMI: 24.7 3. Vital Signs: BP: 115/75 Pulse: 99 Resp: 14 Temp: 02 Sat: 96 ECG Mon: 4. Pain Intensity: 3 5. Fall Risk: Dizziness: N Needs help standing or walking: N Fallen in the last 3 months: N Fall risk comments: 6. Patient on Blood Thinner: None 7. History of Hypertension: N 8. Opioid Therapy greater than 6 weeks: Y Opiate Contract Signed: 05/22/16 9. Risk Assessment Tool Provided: LOW RISK 1 10. Functional Assessment Tool: 11. Recreational Drug Use: Never Drug Type: Tobacco Use: Never Smoker Tobacco Type: Amount or Packs/day: How Many Years: Alcohol Use: No Frequency: Quant:
== END ==
LOC: PAIN 07:09
PROVIDERS: ATTEND Clinical Nurse Specialist Adult Health
DX: G89.4 Chronic pain syndrome (principal); M54.5 Low back pain; M54.2 Cervicalgia; Z79.899 Other long term (current) drug therapy; Z79.891 Long term (current) use of opiate analgesic

== ENCOUNTER → 2021-01-24 | Outpatient (CLI) | payer OTHER, MEDICARE ==
[~2021-01-24] VITALS: Ht 165.1 cm; Wt 64.6 kg
[2021-01-24 11:18] VITALS: BP 148/74
--- NOTE | 2021-01-24 11:45 | NUR ---
Pain Clinic Assessment: 1. History of Osteoarthritis: SPINE SHOULDERS NECK History of Rheumatoid Arthritis: DENIES 2. Height: 5 ft. 5 in. 165.1 cm. Weight: 142.4 lb. oz. 64.592 kg. Patient's BMI: 23.7 3. Vital Signs: BP: 148/74 Pulse: 66 Resp: 14 Temp: 02 Sat: 100 ECG Mon: 4. Pain Intensity: 6 5. Fall Risk: Dizziness: N Needs help standing or walking: N Fallen in the last 3 months: N Fall risk comments: 6. Patient on Blood Thinner: None 7. History of Hypertension: N 8. Opioid Therapy greater than 6 weeks: Y Opiate Contract Signed: 05/22/16 9. Risk Assessment Tool Provided: LOW RISK 1 10. Functional Assessment Tool: 11. Recreational Drug Use: Never Drug Type: Tobacco Use: Never Smoker Tobacco Type: Amount or Packs/day: How Many Years: Alcohol Use: No Frequency: Quant:
== END ==
LOC: PAIN 10:21
PROVIDERS: ATTEND Clinical Nurse Specialist Adult Health
DX: M79.622 Pain in left upper arm (principal); M79.18 Myalgia, other site; Z79.82 Long term (current) use of aspirin; Z79.899 Other long term (current) drug therapy; Z88.8 Allergy status to other drugs, medicaments and biological substances

== ENCOUNTER → 2021-04-25 | Outpatient (CLI) | payer OTHER, MEDICARE ==
[~2021-04-25] VITALS: Ht 165.1 cm; Wt 64.8 kg
[~2021-04-25] MED LIST changes: +PROTONIX40 M2 PO
[2021-04-25 11:03] VITALS: BP 156/82
--- NOTE | 2021-04-25 11:50 | NUR ---
Pain Clinic Assessment: 1. History of Osteoarthritis: SPINE SHOULDERS NECK History of Rheumatoid Arthritis: DENIES 2. Height: 5 ft. 5 in. 165.1 cm. Weight: 142.8 lb. oz. 64.774 kg. Patient's BMI: 23.8 3. Vital Signs: BP: 156/82 Pulse: 77 Resp: 16 Temp: 02 Sat: 96 ECG Mon: 4. Pain Intensity: 4 5. Fall Risk: Dizziness: N Needs help standing or walking: N Fallen in the last 3 months: N Fall risk comments: 6. Patient on Blood Thinner: None 7. History of Hypertension: N 8. Opioid Therapy greater than 6 weeks: Y Opiate Contract Signed: 05/22/16 9. Risk Assessment Tool Provided: LOW RISK 1 10. Functional Assessment Tool: 11. Recreational Drug Use: Never Drug Type: Tobacco Use: Never Smoker Tobacco Type: Amount or Packs/day: How Many Years: Alcohol Use: No Frequency: Quant:
== END ==
LOC: PAIN 10:01
PROVIDERS: ATTEND Clinical Nurse Specialist Adult Health
DX: G89.4 Chronic pain syndrome (principal); M54.50 Low back pain, unspecified; M54.16 Radiculopathy, lumbar region; M79.602 Pain in left arm; Z79.82 Long term (current) use of aspirin; Z88.8 Allergy status to other drugs, medicaments and biological substances; Z79.899 Other long term (current) drug therapy